=== PATIENT | male | born 1970 | race Caucasian/White ===

== ENCOUNTER → 2020-07-06 15:17 | Outpatient (BNVA) | payer BC, SELFPAY | PROVIDERS: PCP Nurse Practitioner Family; Visit Provider Surgery | DX: K64.4 Residual hemorrhoidal skin tags (principal) | CPT/HCPCS: 46600 ==

== ENCOUNTER 2020-07-31 09:04 | Day surgery (SDC) | payer BC, SELFPAY ==
[2020-07-27 09:20] VITALS: BMI 34.9
--- NOTE | 2020-07-30 09:37 | P.CONAN_ITS ---
Documented by User: Jenn Martinez 07/30/20 09:38 HPI - Anesthesia Eval Consult details Narrative: 50yo M for Excision Anal Mass,EUA [facility] Past Medical History Medical History Displaced fracture of mandible External hemorrhoids Injury of shoulder, left Mass of anus Family History Family History Father Diabetes Mother No problems noted. Surgical History Surgical History H/O right wrist surgery History of hand surgery History of hemorrhoidectomy Social History Social History Use of substances other than those prescribed or required for medical reasons: No Have you been hit, kicked, punched, or otherwise hurt by someone within the past year? If so, by whom?: No Advance Directives: No Advance Directives Information Provided: Yes Recently lost weight without trying: No Meds Allergies Allergy/AdvReac Type Severity Reaction Status Date / Time bee sting Allergy Unknown Uncoded 02/04/20 00:00 Exam Exam Date and Time: July 30, 2020 0937 Height,Weight and Vital Signs: Height 5 ft 11 in Weight 113.852 kg Assessment and Plan Assessment Anesthesia Assessment: Chart Reviewed Documented by User: El Joel 07/31/20 09:44 [facility] Past Medical History Medical History Displaced fracture of mandible External hemorrhoids Injury of shoulder, left Mass of anus Family History Family History Father Diabetes Mother No problems noted. Family history of problems with anesthesia: No Surgical History Surgical History H/O right wrist surgery History of hand surgery History of hemorrhoidectomy History of Problems with Anesthesia: No Social History Social History Use of substances other than those prescribed or required for medical reasons: No Have you been hit, kicked, punched, or otherwise hurt by someone within the past year? If so, by whom?: No Advance Directives: No Advance Directives Information Provided: Yes Recently lost weight without trying: No Meds Allergies Allergy/AdvReac Type Severity Reaction Status Date / Time bee sting Allergy Unknown Uncoded 02/04/20 00:00 Assessment and Plan Assessment Anesthesia Assessment: Anesthesia Plan Discussed Final Anesthetic Review NPO: Yes ASA Class: II Final Preanesthetic Review: No Changes in Pt Med Stat, Meds/Allgs Chart Reviewed, Consent Obtained/Reviewed and Anes Risks/Benef Reviewed Patient Risk: Intermediate Procedure Risk: Low Anesthetic Plan Anesthetic Plan: GA and Agree w/ Assess. and Plan Disposition: Standard PACU
[2020-07-30 11:14] VITALS: BMI 34.9
[2020-07-31] VITALS (18 sets, daily range): BP systolic 94–137; BP diastolic 56–101; PULSE 51–78; RESP 16–18; TEMP 36.2–36.5; O2SAT 93–98
--- NOTE | 2020-07-31 09:28 | MHC.SHP ---
Pre-Procedural Eval Section B Chief Complaint: Diseases of anus and rectum,hemorrhoidal Skin tags Allergies: Allergies Allergy/AdvReac Type Severity Reaction Status Date / Time bee sting Allergy Unknown Uncoded 02/04/20 00:00 Plan I have reviewed the history and physical and performed a pertinent physical examination on my patient. No changes have occurred unless specified.
[2020-07-31] MEDS: Lactated Ringers 1,000 ML 100 ML IVCONT (09:31)
--- NOTE | 2020-07-31 10:48 | PM.OP ---
Brief Operative Note Date of Service: 07/31/20 Pre-op diagnosis: hemorrhoids, anal mass Post-op diagnosis: other (int/exter hemorrhoids) Procedure: EUA, hemorrhoidectomy x 2 Surgeon: Luis Alberto Infante MD Anesthesia: GLMA Estimated blood loss (mL): 50 Pathology: other (hemorrhoids) Condition: stable Disposition: PACU
[2020-07-31] MEDS: fentaNYL citrate/PF 100 MCG/2 ML VIAL 50 MCG IVPUSH ×2 (11:10→11:20)
[2020-07-31] MEDS: oxyCODONE HCl Immed Release 5 MG TABLET PO (11:42)
[2020-07-31] MEDS: Acetaminophen 325 MG TABLET 650 MG PO (11:42)
--- NOTE | 2020-07-31 11:53 | OP_ITS ---
SURGEON: Luis Alberto Infante MD INDICATIONS: The patient is a 50-year-old male, who was referred to the office because of hemorrhoid problems. He also describes a prolapsing mass in the anal canal. Anoscopy showed a mass in the anal canal on the right side, very bulky, that seemed to bleed easily and would prolapse easily as well. There was note of an external hemorrhoid on this area as well externally. In view of this mass getting inflamed and bleeding frequently, he wanted to proceed with excision. He understood the technique of exam under anesthesia, and excision of the anal mass or hemorrhoidectomy. He is aware of the risks, benefits, and alternatives. PREOPERATIVE DIAGNOSIS: Anal mass and hemorrhoids. POSTOPERATIVE DIAGNOSIS: Hemorrhoids, multiple columns, internal and external. PROCEDURE PERFORMED: Exam under anesthesia, hemorrhoidectomy x2 columns. ESTIMATED BLOOD LOSS: COMPLICATIONS: ANESTHESIA: ASSISTANTS: SPECIMENS: DESCRIPTION OF PROCEDURE: He was brought to the operating room ad placed in prone awilda-knife position under general anesthesia via laryngeal mask airway. The buttocks were retracted with wide tape laterally. The perianal area was prepped and draped in usual sterile fashion. A surgical time-out was done. The patient received Cefotan 2 g IV preoperatively. Examination of the anal orifice revealed a large bulky hemorrhoidal column on the right side. I inserted the Jorge-Noland retractor and examined the anal canal circumferentially. Again, large bulky hemorrhoidal column was seen on the right, which was a mix of internal and external. This seemed to prolapse easily as well with its internal component. There was note of external hemorrhoid on the left side, which was moderately sized. There were no other lesions. There was no fissures or any induration. I applied a Garnett grasper at the large hemorrhoidal column on the right side. I pulled this out into the field. I made a qlxuzg-yg-ogkyi stitch at the pedicle past the dentate line using chromic 3-0 stitch and made an incision around this hemorrhoidal column to the perianal skin using blade #15. I excised this hemorrhoidal column above the plane of sphincters along this line of incision using scissors. I closed this incision with running chromic 3-[address] to the perianal skin. I had to place multiple spnyvr-ai-eepoq sutures to achieve hemostasis as there was note of significant oozing in view of the bulky nature of the hemorrhoid. I proceeded to apply a Garnett grasper as well on the left hemorrhoidal column, which was mostly external. I made an incision around this using the blade #15 and I closed this with a running chromic 3-0 stitch. Additional hemostatic idbmgs-fp-eagab sutures were placed as well. I observed for hemostasis. We observed for about 5 minutes. We had to place additional gegpuy-kl-xtpyf sutures on any visible oozing areas on the right side excision site. We observed for good hemostasis for about 3 minutes. I proceeded to then apply Gel-Foam packing in the anal canal. I infiltrated the perianal area with Marcaine 0.5% for postop analgesia, and the procedure was completed. The patient tolerated the procedure well. There were no complications noted. Initial and final counts of sponges and instruments were correct. Estimated blood loss was about 50 mL. The patient tolerated the procedure well. There were no complications noted. The patient was extubated without difficulty and transferred to recovery room with stable vital signs. MD PETRA Vincent/PAMELA / [phone] MTDD
[2020-07-31] MEDS: Ketorolac Tromethamine 15 MG/ML VIAL IVPUSH (12:10)
--- NOTE | 2020-07-31 13:53 | HO.POSTANES ---
Post Anesthesia Evaluation Post Anesthesia Evaluation Vital Signs: Vital Signs Temp Pulse Resp BP Pulse Ox 07/31/20 13:35 97.1 F 64 18 105/57 L 98 07/31/20 13:06 61 16 112/56 L 95 07/31/20 12:35 56 96/60 94 07/31/20 12:05 72 16 100/57 L 97 07/31/20 11:50 68 16 125/87 98 07/31/20 11:35 62 16 123/85 98 07/31/20 11:25 60 16 127/75 93 07/31/20 11:20 64 16 125/84 94 07/31/20 11:16 58 16 137/81 95 07/31/20 11:10 78 16 130/80 94 07/31/20 11:05 97.1 F 64 16 130/75 97 07/31/20 09:21 97.5 F 75 16 122/101 H 97 Anesthesia: General LMA Mental Status: Awake Pain Control: Satisfactory Nausea/Vomiting: None Hydration: Adequate Anesthesia-Related Issues: No Anes. Related Issues
[2020-07-31 14:28] LABS: MANUAL DIFF FLAG NO
[2020-07-31 14:29] LABS: Basophils Percent Auto 0.2 % (0-2); Eosinophils Percent Auto 0.2 % (0-4); Hematocrit 37.1 % (42-52); Hemoglobin 12.2 g/dl (14.0-18.0); Imm Gran Abs Auto 0.04 X10*3/uL (0.00-0.03); Imm Gran Pct Auto 0.4 % (0.0-0.4); Lymphocytes Absolute Auto 1.1 X10*3/uL (1.2-4.9); Lymphocytes Percent Auto 9.7 % (20-40); Mean Corpuscular HGB Conc 32.9 g/dl (31.0-36.0); Mean Corpuscular Hemoglobin 28.2 pg (27.0-33.0); Mean Corpuscular Volume 85.7 fL (80-98); Mean Platelet Volume 9.7 fL (9.4-12.4); Monocytes Absolute Auto 0.6 X10*3/uL (0.1-1.2); Monocytes Percent Auto 5.8 % (2-11); Neutrophils Absolute Auto 9.3 X10*3/uL (2.0-8.3); Neutrophils Percent Auto 83.7 % (45-73); Platelet Count 188 X10*3/uL (160-400); Red Blood Count 4.33 X10*6/uL (4.60-5.80); Red Cell Distribution Width 12.6 % (11.0-16.0); White Blood Count 11.1 X10*3/uL (4.8-10.8)
[2020-07-31] MEDS: Lactated Ringers 500 ML IVCONT (14:55)
[2020-07-31 14:59] LABS: Anion Gap 11 (12-20); Blood Urea Nitrogen 20 mg/dL (9-16); Calcium 8.8 mg/dL (8.4-10.2); Carbon Dioxide 24 mmol/L (22-29); Chloride 107 mmol/L (96-108); Creatinine Clr Calc Pharmacy 81.2; Estimated Glomerular Filt Rate 54; Glucose Random 129 mg/dL (60-115); Potassium 4.2 mmol/l (3.3-5.1); Sodium 138 mmol/L (135-145)
--- NOTE | 2020-07-31 17:01 | PM.EVENT ---
Event Note Date of Service: 07/31/20 Event Note: pt underwent hemorrhoidectomy x 2 columns today he wad an episode of hypotension in PACU, reposnded to fluids and one dose of Neosynephrine not tachycardic he did well thereafter but got dizzy and lightheaded on the way to discharge was kept longer in PACU eventaully became much more comfortable stable the rest of his stay good vital signs, comfortable on discharge no bleeding from hemorrhoidectomy site Hg good
== END 2020-07-31 16:32 | disposition home or self-care (01) ==
PROVIDERS: Anesthesiology; PCP Nurse Practitioner Family; Visit Provider Surgery
PROC: (CPT 46260; principal; 2020-07-31 10:00)
DX: K64.8 Other hemorrhoids (principal); K64.4 Residual hemorrhoidal skin tags; E78.00 Pure hypercholesterolemia, unspecified; E11.9 Type 2 diabetes mellitus without complications; Z79.4 Long term (current) use of insulin; Z79.899 Other long term (current) drug therapy
CPT/HCPCS: 46260; 36415; 80048; 85025; 88304; J0461; J1885; J3010

== ENCOUNTER → 2020-08-13 08:57 | Outpatient (BNVA) | payer BC, SELFPAY | PROVIDERS: PCP Nurse Practitioner Family; Visit Provider Surgery | DX: Z76.89 Persons encountering health services in other specified circumstances (principal) ==

== ENCOUNTER → 2022-11-01 10:03 | Outpatient (BNVA) | payer BC, SELFPAY | PROVIDERS: PCP Nurse Practitioner Family; Visit Provider Physician Assistant | DX: Z13.89 Encounter for screening for other disorder (principal) ==

== ENCOUNTER 2023-01-31 10:39 | Outpatient (REF) | payer BC, SELFPAY ==
[2023-01-31 15:01] LABS: MANUAL DIFF FLAG NO
[2023-01-31 15:19] LABS: Basophils Absolute Auto 0.1 X10*3/uL (0.0-0.2); Basophils Percent Auto 0.9 % (0-2); Eosinophils Absolute Auto 0.3 X10*3/uL (0.0-0.4); Hemoglobin 14.2 g/dl (14.0-18.0); Imm Gran Abs Auto 0.03 X10*3/uL (0.00-0.03); Imm Gran Pct Auto 0.4 % (0.0-0.4); Lymphocytes Absolute Auto 2.2 X10*3/uL (1.2-4.9); Lymphocytes Percent Auto 26.7 % (20-40); Mean Corpuscular HGB Conc 32.3 g/dl (31.0-36.0); Mean Corpuscular Hemoglobin 28.4 pg (27.0-33.0); Mean Platelet Volume 10.4 fL (9.4-12.4); Monocytes Absolute Auto 0.8 X10*3/uL (0.1-1.2); Monocytes Percent Auto 9.4 % (2-11); Neutrophils Absolute Auto 4.8 x10*3/uL (2.0-8.3); Neutrophils Percent Auto 58.6 % (45-73); Platelet Count 262 X10*3/uL (160-400); Red Cell Distribution Width 12.8 % (11.0-16.0); White Blood Count 8.2 X10*3/uL (4.8-10.8)
[2023-01-31 15:38] LABS: Appearance Urine Clear; Color Urine Yellow; Glucose Urine UA Negative (Negative); Leukocyte Esterase Urine Negative (Negative); Nitrite Urine Negative (Negative); PH 5.5 (5.0-9.0); Specific Gravity - Urine 1.025 (1.005-1.025); Urine Blood Negative (Negative); Urine Ketones Negative (Negative); Urine Protein Negative (Neg-Trace)
[2023-01-31 15:55] LABS: Alanine Aminotransferase 25 U/L (0-40); Albumin Level 4.4 g/dL (3.5-5.0); Alkaline Phosphatase 86 U/L (39-117); Anion Gap 11 (12-20); Aspartate Amino Transferase 16 U/L (5-37); Bilirubin Total 0.4 mg/dL (0.0-1.0); Blood Urea Nitrogen 23 mg/dL (9-16); Calcium 10.1 mg/dL (8.4-10.2); Carbon Dioxide 27 mmol/L (22-29); Chloride 105 mmol/L (96-108); Cholesterol 150 mg/dL; Estimated Glomerular Filt Rate > 60; Glucose Fasting 117 mg/dL (60-99); HDL Cholesterol 30 mg/dL; LDL Cholesterol Calculated 95 mg/dl; Potassium 4.3 mmol/L (3.3-5.1); Sodium 139 mmol/L (135-145); Triglycerides 127 mg/dL
[2023-01-31 15:56] LABS: TSH reflex Free T4 1.22 uIU/mL (0.32-4.0)
[2023-01-31 15:59] LABS: Prostate Specific Antigen Scr 1.47 ng/mL (<0.05-4.0)
== END 2023-01-31 10:40 | disposition home or self-care (01) ==
LOC: HO.HMGCLDS 10:39
PROVIDERS: PCP Nurse Practitioner Family; Visit Provider Nurse Practitioner Family
DX: Z00.00 Encounter for general adult medical examination without abnormal findings (principal); Z12.5 Encounter for screening for malignant neoplasm of prostate; E66.9 Obesity, unspecified; E78.5 Hyperlipidemia, unspecified
CPT/HCPCS: 36415; 80053; 80061; 81003; 84153; 84443; 85025

== ENCOUNTER 2023-05-16 12:42 | Day surgery (SDC) | payer BC, SELFPAY ==
[2023-05-12 11:49] VITALS: BMI 35.4
--- NOTE | 2023-05-15 11:42 | P.CONAN_ITS ---
Documented by User: Jenn Martinez NP 05/15/23 11:43 HPI - Anesthesia Eval Consult details Narrative: 53yo M for Colonoscopy PMFSH Active Problems Active Problems: All Active Problems (Updated 01/31/23 @ 10:34 by Wally Lakhani MD) Upper respiratory tract infection (Acute) Encounter for screening colonoscopy (Acute) Physical exam (Acute) Screening PSA (prostate specific antigen) (Acute) Onychomycosis (Acute) Screening for colon cancer (Acute) External hemorrhoids (Acute) Mass of anus (Acute) Hemorrhoid thrombosis (Acute) Past Medical History Medical History External hemorrhoids Mass of anus Displaced fracture of mandible Injury of shoulder, left Family History Family History Father Diabetes Mother No problems noted. Daughter Mental health disorder Family history of problems with anesthesia: No Surgical History Surgical History H/O fasciotomy History of hemorrhoidectomy History of hand surgery H/O right wrist surgery History of Problems with Anesthesia: No Social History Social History Housing: House Patient Tobacco Use Status: Never used Tobacco e-Cigarette/Vaping Use: Never Used Second Hand Smoke Exposure: No Use of substances other than those prescribed or required for medical reasons: No Are you DNR?: No Advance Directives: No Advance Directives Information Provided: Yes service: Yes Current occupational status: employed Current occupation: [employer] Current occupational exposures/hazards: Yes Cognitive needs: No Hearing needs: No Vision needs: No Meds Allergies Allergy/AdvReac Type Severity Reaction Status Date / Time bee venom protein (honey bee) Allergy Unknown unknown Verified 05/16/23 13:07 Exam Exam Date and Time: May 15, 2023 1142 Height,Weight and Vital Signs: Height 5 ft 11 in Weight 115.212 kg Pertinent Lab Results Pertinent Lab Results: Laboratory Tests 01/31/23 10:52 WBC 8.2 Hgb 14.2 Hct 44.0 Plt Count 262 Sodium 139 Potassium 4.3 Chloride 105 Carbon Dioxide 27 BUN 23 H Creatinine 1.06 Assessment and Plan Assessment Anesthesia Assessment: Chart Reviewed Final Anesthetic Review Family History of Problems with Anesthesia: No History of Problems with Anesthesia: No Documented by User: Lauren Cash MD 05/16/23 13:23 [facility] Past Medical History Medical History External hemorrhoids Mass of anus Displaced fracture of mandible Injury of shoulder, left Family History Family History Father Diabetes Mother No problems noted. Daughter Mental health disorder Surgical History Surgical History H/O fasciotomy History of hemorrhoidectomy History of hand surgery H/O right wrist surgery Social History Social History Housing: House Patient Tobacco Use Status: Never used Tobacco e-Cigarette/Vaping Use: Never Used Second Hand Smoke Exposure: No Use of substances other than those prescribed or required for medical reasons: No Are you DNR?: No Advance Directives: No Advance Directives Information Provided: Yes service: Yes Current occupational status: employed Current occupation: [employer] Current occupational exposures/hazards: Yes Cognitive needs: No Hearing needs: No Vision needs: No Meds Allergies Allergy/AdvReac Type Severity Reaction Status Date / Time bee venom protein (honey bee) Allergy Unknown unknown Verified 05/16/23 13:07 Exam Airway Mallampati Class: III TM Dist: >3cm Neck ROM: Full Assessment and Plan Assessment Anesthesia Assessment: Anesthesia Plan Discussed Final Anesthetic Review NPO: Yes ASA Class: III Final Preanesthetic Review: No Changes in Pt Med Stat, Meds/Allgs Chart Reviewed, Consent Obtained/Reviewed and Anes Risks/Benef Reviewed Patient Risk: Intermediate Procedure Risk: Low Anesthetic Plan Anesthetic Plan: MAC: Disposition: Standard PACU
[2023-05-16 13:25] VITALS: BP 141/87; PULSE 80; RESP 16; TEMP 36.9; O2SAT 97
[2023-05-16] MEDS: Lactated Ringers 1,000 ML 100 ML IVCONT (13:35)
--- NOTE | 2023-05-16 13:55 | P.HPSUR_ITS ---
Pre-Procedural Eval Section A Date of Service: 05/16/23 Section B Chief Complaint: Encounter for screening for malignant neoplasm of Relevant Family History (Specify if Yes): No Relevant Social History: None Present Medications: see Short Stay Collaborative assessment Medical History: Significant History (hemorrhoids) History of Previous Operations: Relevant previous surgery/procedure and date(s) (H/O right wrist surgery History of hand surgery History of hemorrhoidectomy) Allergies: Allergies Allergy/AdvReac Type Severity Reaction Status Date / Time bee venom protein (honey bee) Allergy Unknown unknown Verified 05/16/23 13:07 Review of Systems Sugical H&P ROS: Negative: Constitution, Cardiovascular, Respiratory, Neurological, Psychiatric, Hem-Onc, Allergic/Immunologic, Gastrointestinal, Genitourinary, Musculoskeletal, Integumentary, Endocrine and E yes/Ears/Nose/Throat Exam Surgical H&P Exam: Normal: HEENT, Normal: Heart, Normal: Lungs, Normal: Extremities, Normal: Abdomen, Normal: Skin and Normal: Neurological Plan Diagnosis/Plan: Unchanged I have reviewed the history and physical and performed a pertinent physical examination on my patient. No changes have occurred unless specified. Time Spent With Patient Time: Total time managing care of this patient today ____ minutes.
--- NOTE | 2023-05-16 14:07 | W.PM.OPN ---
Operative Note Operative Note Date of Service: 05/16/23 Narrative: Operative Information Procedure Description: Colonoscopy Indication: screening Anesthesia: MAC COLONOSCOPY Instrument: Olympus variable stiffness ADULT scope 190L Colonoscopy Monitoring: Vital signs and clinical assessment, continuous EKG monitoring, Pulse oximetry, Carbon Dioxide monitoring and blood pressure monitoring were done throughout the procedure. Colon withdrawal time was 8 minutes. Procedure: The patient was placed in the left lateral decubitis position and pre-procedure medications were administered. After a digital rectal examination of the ano-rectum, the video colonoscope was inserted into the rectum and advanced through the colon to the cecum/TI. The colonoscope was slowly withdrawn in a retrograde panoramic fashion and the colon mucosa was carefully examined including a retroflexed view of the rectum. Findings and interventions are described below. Procedure Difficulty: easy Findings: Terminal Ileum-normal Cecum:normal Ascending Colon: normal Transverse Colon -normal Descending Colon:normal Sigmoid Colon: normal Rectum: Retroflexion with small internal hemorrhoids, grade I Anorectum - normal Colon preparation: [place] Bowel Preparation Scale Right colon; 3 Transverse colon: 3 Left colon; 3 (0 = Unprepared colon segment with mucosa not seen due to solid stool that cannot be cleared. 1 = Portion of mucosa of the colon segment seen, but other areas of the colon segment not well seen due to staining, residual stool and/or opaque liquid. 2 = Minor amount of residual staining, small fragments of stool and/or opaque liquid, but mucosa of colon segment seen well. 3 = Entire mucosa of colon segment seen well with no residual staining, small fragments of stool or opaque liquid) Impression and Post Procedure Diagnosis: internal hemorrhoids Plan: High fiber diet leaflet Avoid straining at stool, epsom salts and sitz bath, anusol supps or cream Repeat Colonoscopy in 10 years or earlier if clinically indicated Above findings were reviewed with the patient and relevant handouts were provided if indicated.
[2023-05-16 14:34] VITALS: BP 117/78; PULSE 73; RESP 16; TEMP 36.2; O2SAT 97
[2023-05-16 14:49] VITALS: BP 128/84; PULSE 71; RESP 16; O2SAT 97
[2023-05-16 15:04] VITALS: BP 137/96; PULSE 72; RESP 16; TEMP 36.3; O2SAT 95
== END 2023-05-16 15:31 | disposition home or self-care (01) ==
PROVIDERS: PCP Nurse Practitioner Family; Visit Provider Internal Medicine Gastroenterology
PROC: 0DJD8ZZ Inspection of Lower Intestinal Tract, Via Natural or Artificial Opening Endoscopic (ICD-10-PCS; CPT 45378; principal; 2023-05-16 14:30)
DX: Z12.11 Encounter for screening for malignant neoplasm of colon (principal); K64.0 First degree hemorrhoids; Z98.890 Other specified postprocedural states
CPT/HCPCS: 45378

== ENCOUNTER → 2023-05-16 12:42 | Outpatient (BNV) | payer BC, SELFPAY | PROVIDERS: PCP Nurse Practitioner Family; Visit Provider Internal Medicine Gastroenterology | DX: Z12.11 Encounter for screening for malignant neoplasm of colon (principal); K64.0 First degree hemorrhoids | CPT/HCPCS: 45378 ==

== ENCOUNTER 2023-06-01 09:57 | Outpatient (AMB) | payer BC, SELFPAY ==
--- NOTE | 2023-06-01 10:05 | MHC.PC.OV ---
Vital Signs 06/01/23 10:07 Height 5 ft 11 in Weight 230 lb BMI 32.1 BP 120/80 Blood Pressure Location Rt brachial Position Sitting Pulse 78 Pulse Source Pulse Oximeter Pulse Oximetry (%) 97 Oxygen Delivery Method Room Air Intake Visit Reasons: 6M. F/U-Onychomycosis Allergies bee venom protein (honey bee) Allergy (Unknown, Verified 06/01/23 10:07) unknown Tobacco use date assessed: 09/06/22 HPI 6M. F/U-Onychomycosis HPI Details Pt's recent fasting blood sugar was elevated. Will repeat labs. Educated pt on proper diet. Denies polyuria, polydipsia, and neuropathy. Pt reports ED. He is taking sildenafil prn. Will check testosterone. Pt reports onychomycosis to his bilat toenails. Will refer to podiatry. [facility] Medical History (Updated 06/01/23 @ 10:45 by Pedro Cantu, [facility]) External hemorrhoids Mass of anus Displaced fracture of mandible Injury of shoulder, left Surgical History (Updated 05/19/23 @ 10:10 by Rosalba Trinh) Hx of colonoscopy H/O fasciotomy History of hemorrhoidectomy History of hand surgery H/O right wrist surgery Family History Father Diabetes Mother No problems noted. Daughter Mental health disorder Social History Housing: House Patient Tobacco Use Status: Never used Tobacco e-Cigarette/Vaping Use: Never Used Second Hand Smoke Exposure: No service: Yes Current occupational status: employed Current occupation: [employer] Current occupational exposures/hazards: Yes Cognitive needs: No Hearing needs: No Vision needs: No Questionnaire Thrive Questionnaire Date Thrive assessed: 09/06/22 GEE-7 AMB Questionnaire GEE-7 Date GEE - 7 assessed: 09/06/22 Source: Developed by Drs. Hector Kam, Paige Ferrari, Jean Jaeger and colleagues, with an educational janay from [employer] Review of Systems Const Reports as per HPI Physical exam (Primary Care) Vital Signs: Last Vital Signs Pulse 78 06/01/23 10:07 BP 120/80 06/01/23 10:07 Pulse Ox 97 06/01/23 10:07 Oxygen Delivery Method Room Air 06/01/23 10:07 BMI result Body Mass Index 32.1 Tobacco/Smoking Status: Tobacco use Status Tobacco use date assessed 09/06/22 06/01/23 10:06 Patient Tobacco Use Status Never used Tobacco 06/01/23 10:06 e-Cigarette/Vaping Use Never Used 06/01/23 10:06 Thrive Assessment: Date of Thrive Assessment Date Thrive assessed 09/06/22 06/01/23 10:06 Const General: cooperative Nutritional Appearance: obese Orientation/consciousness: patient oriented x3 Resp Effort & Inspection: normal respiratory effort Auscultation: clear to auscultation bilaterally Cardio Rate: regular rate Rhythm: regular rhythm Heart sounds: S1 normal heart sound present and S2 normal heart sound present Skin Other: several macular and papular flesh colored lesions to back, large skin tag just inferior to right axillary region Neuro General: patient oriented x3 Extrem Other: onychomycosis noted to bilat feet Psych Appearance: grossly normal Mental Status: mental status grossly normal Speech and movement: Normal speech and movement present Affect: normal affect Attitude: cooperative Thought process: Normal thought process present Thought content: Normal thought content present Insight: Good insight present (Psych) Judgement: Good judgement present (Psych) Assessment and Plan Assessment & Plan (1) Elevated fasting blood sugar: Code(s): R73.01 - Impaired fasting glucose Plan: Labs ordered (2) Erectile dysfunction: Code(s): N52.9 - Male erectile dysfunction, unspecified Plan: Testosterone noted (3) Onychomycosis: Code(s): B35.1 - Tinea unguium Plan: Referred to podiatry (4) Skin lesions: Code(s): L98.9 - Disorder of the skin and subcutaneous tissue, unspecified Plan The patient agreed to the use of a medical director/head team physician for this encounter. Scribed for ZEENAT Alonzo by Toya Wolff medical director/head team physician, on 06/01/2023 at 10:30 EST Orders: Orders Complete Blood Count Auto Diff Today R73.01 - Impaired fasting glucose Comprehensive Met. Panel Today R73.01 - Impaired fasting glucose Testosterone, Free/Total Today N52.9 - Male erectile dysfunction, unspecified Referrals Podiatry Referral B35.1 - Tinea unguium Dermatology Referral L98.9 - Disorder of the skin and subcutaneous tissue, unspecified Coding Level of Care Code Est Pt Level 3 (49269) Diagnoses Elevated fasting blood sugar R73.01 Erectile dysfunction N52.9 Onychomycosis B35.1 Skin lesions L98.9
[2023-06-01 10:07] VITALS: BP 120/80; PULSE 78; O2SAT 97; BMI 32.1
== END 2023-06-01 10:59 | disposition home or self-care (01) ==
PROVIDERS: PCP Nurse Practitioner Family; Visit Provider Nurse Practitioner Family
DX: R73.01 Impaired fasting glucose (principal); N52.9 Male erectile dysfunction, unspecified; B35.1 Tinea unguium; L98.9 Disorder of the skin and subcutaneous tissue, unspecified
CPT/HCPCS: 99213

== ENCOUNTER 2023-06-01 10:56 | Outpatient (REF) | payer BC, SELFPAY ==
[2023-06-01 13:15] LABS: MANUAL DIFF FLAG NO
[2023-06-01 13:33] LABS: Basophils Percent Auto 0.6 % (0-2); Eosinophils Absolute Auto 0.1 X10*3/uL (0.0-0.4); Eosinophils Percent Auto 2.6 % (0-4); Hematocrit 42.7 % (42.0-52.0); Hemoglobin 14.3 g/dl (14.0-18.0); Imm Gran Abs Auto 0.01 X10*3/uL (0.00-0.03); Imm Gran Pct Auto 0.2 % (0.0-0.4); Lymphocytes Percent Auto 37.8 % (20-40); Mean Corpuscular HGB Conc 33.5 g/dl (31.0-36.0); Mean Corpuscular Hemoglobin 28.9 pg (27.0-33.0); Mean Corpuscular Volume 86.3 fL (80.0-98.0); Mean Platelet Volume 10.4 fL (9.4-12.4); Monocytes Absolute Auto 0.6 X10*3/uL (0.1-1.2); Monocytes Percent Auto 10.5 % (2-11); Neutrophils Absolute Auto 2.6 x10*3/uL (2.0-8.3); Neutrophils Percent Auto 48.3 % (45-73); Platelet Count 218 X10*3/uL (160-400); Red Blood Count 4.95 X10*6/uL (4.60-5.80); Red Cell Distribution Width 12.6 % (11.0-16.0); White Blood Count 5.3 X10*3/uL (4.8-10.8)
[2023-06-01 14:54] LABS: Alanine Aminotransferase 44 U/L (0-40); Albumin Level 4.5 g/dL (3.5-5.0); Alkaline Phosphatase 60 U/L (39-117); Anion Gap 14 (12-20); Aspartate Amino Transferase 26 U/L (5-37); Bilirubin Total 0.6 mg/dL (0.0-1.0); Blood Urea Nitrogen 20 mg/dL (9-16); Calcium 9.9 mg/dL (8.4-10.2); Carbon Dioxide 23 mmol/L (22-29); Chloride 105 mmol/L (96-108); Estimated Glomerular Filt Rate > 60; Glucose Random 82 mg/dL (60-115); Potassium 3.7 mmol/L (3.3-5.1); Sodium 138 mmol/L (135-145); Total Protein 7.5 g/dL (6.5-8.0)
[2023-06-06 15:44] LABS: Testosterone, Total 383 ng/dL (250-1100)
== END 2023-06-01 10:57 | disposition home or self-care (01) ==
LOC: HO.HMGCLDS 10:56
PROVIDERS: PCP Nurse Practitioner Family; Visit Provider Nurse Practitioner Family
DX: R73.01 Impaired fasting glucose (principal); N52.9 Male erectile dysfunction, unspecified
CPT/HCPCS: 36415; 80053; 84402; 84403; 85025

== ENCOUNTER 2023-06-20 08:42 | Outpatient (REF) | payer BC, SELFPAY ==
--- NOTE | ~2023-06-20 | US_ITS ---
EXAMINATION: US ABDOMEN COMPLETE CLINICAL INFORMATION: Abnormal levels of other serum enzymes. COMPARISON: None available. TECHNIQUE: Real-time imaging of the abdominal viscera. FINDINGS: PANCREAS: Visualized portions of the pancreas are unremarkable however portions are obscured by bowel gas limiting evaluation. ABDOMINAL AORTA: The proximal, mid, and distal segments are normal in caliber. INFERIOR VENA CAVA: Visualized portions are normal. LIVER: The liver is normal in size. The liver contour is normal. Echogenic liver with regions of focal fatty sparing compatible with hepatic steatosis. No focal hepatic lesion. There is no intrahepatic biliary duct dilatation seen. GALLBLADDER: Normal. The gallbladder is physiologically distended without evidence of stones, sludge, polyps, wall thickening or pericholecystic fluid. COMMON BILE DUCT: Normal in caliber measuring 0.2 cm in diameter. RIGHT KIDNEY: Normal. No hydronephrosis. No renal calculi or focal parenchymal lesions. The kidney measures 11.2 cm in maximum dimension. LEFT KIDNEY: Normal. No hydronephrosis. No renal calculi or focal parenchymal lesions. The kidney measures 10.6 cm in maximum dimension. SPLEEN: Normal. The spleen measures 11.7 cm in maximum dimension. FREE FLUID: None. US/US abdomen complete IMPRESSION: Moderate hepatic steatosis.
[2023-06-20 12:16] LABS: HBS Num1 233.67 mIU/mL (0-7.99); HBc Num1 0.08 S/CO (0.00-0.79); HBsAGNum1 0.29 S/CO (0.00-0.99); Hepatitis A Antibody IgM 0.28 Index (0-0.79); Hepatitis B Core Antibody Nonreactive (Nonreactive); Hepatitis B Surface Antigen Negative (Negative); ~HepC Num1 0.13 S/CO (0.00-0.79); ~Hepatitis A Antibody IgM Nonreactive (Nonreactive); ~Hepatitis B Surface Antibody REACTIVE (Nonreactive); ~Hepatitis C Antibody Nonreactive (Nonreactive)
== END 2023-06-20 08:43 | disposition home or self-care (01) ==
LOC: HO.HMGCX 08:42
PROVIDERS: PCP Nurse Practitioner Family; Visit Provider Nurse Practitioner Family
DX: R74.8 Abnormal levels of other serum enzymes (principal)
CPT/HCPCS: 36415; 76700; 86704; 86706; 86709; 86803; 87340

== ENCOUNTER 2023-07-18 10:35 | Outpatient (REF) | payer BC, SELFPAY ==
[2023-07-18 14:04] LABS: HIV AB/AG Nonreactive (Nonreactive); HIV Num 1 0.09 S/CO (0.00-0.99); Syphilis Screen Nonreactive (Nonreactive)
[2023-07-19 11:41] LABS: CT PCR NOT DETECTED (Not Detect.); NG PCR NOT DETECTED (Not Detect.)
== END 2023-07-18 10:36 | disposition home or self-care (01) ==
LOC: HO.HMGCLDS 10:35
PROVIDERS: PCP Nurse Practitioner Family; Visit Provider Nurse Practitioner Family
DX: Z20.2 Contact with and (suspected) exposure to infections with a predominantly sexual mode of transmission (principal)
CPT/HCPCS: 0353U; 86780; 87389

== ENCOUNTER 2024-08-09 10:02 | Outpatient (REF) | payer BC, SELFPAY ==
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
--- OUTSIDE RECORDS SUMMARY | 2024-08-09 10:09 | XMS_ITS ---
Author Organization [facility] Address [address] [place] [address] Care Team Providers Care Regional Sales Coordinator Name Role Phone Pedro Birmingham Primary Care Provider Unav ailable Adrienne Melendez Unavailable [phone] REASON FOR VISIT no show Encounters Encounter Location Date Provider Diagnosis [facility] [address] [place] [address] 07/05/2024 Adrienne Melendez Plan Of Treatment No Information Progress Notes * Asad CURRIEinDOB:1970 (54 yo M)Acc No.[id number]:07/05/2024 Patient:?Mert CURRIE :1970???Age:54 Y???Sex:Male Address:[address], [place], [address] * true * Date:? Generated for Koreyi rita/Frankie/eTransmitting on:?08/09/2024 10:08 AM EST
--- OUTSIDE RECORDS SUMMARY | 2024-08-09 10:09 | XMS_ITS | Continuity of Care Document ---
Author Name [facility] Organization [facility] Care Team Providers Care Stamp Maker Name Role Phone [facility] Unavailable Unavailable Social History Combined list of available smoking, tobacco, and other social history from Department of Defense and Veterans Affairs facilities. Social History Type Response Date Comment Sourc e This section is an empty social history section. [facility]
--- OUTSIDE RECORDS SUMMARY | 2024-08-09 10:09 | XMS_ITS | Patient Health Record ---
[facility] Kirt mateusz Gabe Address [address] [place] [address] Care Team Providers Care Cable Maintainer Name Role Phone Pedro Birmingham Primary Care Provider Unav ailable Adrienne Melendez Unavailable [phone] Allergies Allergen (clinical drug ingredient) Drug/Non Drug Allergy documented on EMR Reaction Allergy Type Onset Date Status Bee Sting Unknown Allergy Active Reason For Referral Diagnosis 1 Pain in unspecified foot (M79.673) Referring Provider First Name Pedro Referring Provider Last Name Pepe [facility] Referred Provider Adrienne Melendez Referred Address [address] ,[place], [place],[address], Referred Provider Specialty Podiatry Referral Priority Routine Medications Medication SIG (Take, Route, Frequency, Duration) Notes Start Date End Date Status LamISIL 250mg 1 tablet orally Once daily for 30 days Active Ciclopirox Olamine 0.77 % 1 application Externally Twice a day to feet including between the toes for 30 days Active Ciclopirox 0.77 % 1 application Zanjero ally Twice a day for 365 days [...] 08/05/2024 Encounters Encounter Location Date Provider Diagnosis [address] [address] 04/24/2024 Adrienne Perica Fungal infection of nail B35.1 ; Pain in right toe(s) M79.674 ; Pain in left toe(s) M79.675 and Tinea pedis of both feet B35.[address] [address] 08/05/2024 Adrienne Perica Pain in right toe(s) M79.674 ; Fungal infection of nail B35.1 ; Pain in left toe(s) M79.675 and Tinea pedis of both feet B35.[address] [address] 04/24/2024 Adrienne Perica Fungal infection of nail B35.[address] [address] 07/05/2024 Adrienne Virka Assessments Encounter Date Diagnosis (ICD Code) Assessment Notes Treatment Notes Treatment Clinical Notes Section Notes 04/24/2024 Pain in right toe(s) (ICD-10 - M79.674) 04/24/2024 Fungal infection of nail (ICD-10 - B35.1) Rx management (4) 04/24/2024 Fungal infection of nail (ICD-10 - B35.1) 08/05/2024 Pain in right toe(s) (ICD-10 - M79.674) 08/05/2024 Fungal infection of nail (ICD-10 - B35.1) Rx management (4) 04/24/2024 Pain in left toe(s) (ICD-10 - M79.675) 08/05/2024 Pain in left toe(s) (ICD-10 - M79.675) 04/24/2024 Tinea pedis of both feet (ICD-10 - B35.3) 08/05/2024 Tinea pedis of both feet (ICD-10 - B35.3) Plan Of Treatment Pending Test Test Name Order Date *Liver Function Test (LFT) 04/24/2024 *Liver Function Test (LFT) 08/05/2024 *Liver Function Test (LFT) 04/24/2024 Insurance Providers Payer Name Payer Address Payer Phone Subscriber Number Group Number Insured Name Patient Relationship to Insured Coverage Start Date Coverage End Date [facility] [address] [place] [address] [id number] M[address] Currie Self - patient is the insured Medical (General) History Medical History History ICD Code Broken bones covid-19 Chicken pox Surgical History Surgery Date(Month/Year) broken bones, surgery to repair 1998
--- OUTSIDE RECORDS SUMMARY | 2024-08-09 10:09 | XMS_ITS ---
Author Organization [facility] Address [address] [place] [address] Care Team Providers Care Brazing Machine Setter Name Role Phone Pedro Birmingham Primary Care Provider Unav ailable Adrienne Melendez Unavailable [phone] Encounters Encounter Location Date Provider Diagnosis [facility] [address] [place] [address] 07/05/2024 Adrienne Melendez Plan Of Treatment No Information Progress Notes * Asad CURRIEinDOB:1970 (54 yo M)Acc No.[id number]:07/05/2024 Progress Note Patient:Mert DAVIS Provider:?Adrienne Melendez DPM :1970???Age:54 Y???Sex:Male Jonathan e:07/05/2024 Address:[address], [facility] [place] Pcp:HANNAH Alonzo Subjective: * Chief Complaints: * ??? * Medical History:? Objective: * Vitals:? Assessment: Plan: * Treatment: * Images: * The named appointment provid er may or may not be the originator of this progress note, and it is not deemed complete until electronically signed by the appointment provider. Sign off status: Pending * Provider:?Adrienne Melendez DPM Date:? Generated for Millie salinas/Frankie/eTransmitting on:?08/09/2024 10:08 AM EST
[2024-08-09 13:31] LABS: Alanine Aminotransferase 47 U/L (0-40); Albumin Level 4.6 g/dL (3.5-5.0); Alkaline Phosphatase 64 U/L (39-117); Aspartate Amino Transferase 27 U/L (5-37); Bilirubin Direct 0.2 mg/dL (0.0-0.5); Bilirubin Total 0.5 mg/dL (0.0-1.0); Total Protein 7.7 g/dL (6.5-8.0)
== END 2024-08-09 10:03 | disposition home or self-care (01) ==
LOC: HO.HMGCLDS 10:02
PROVIDERS: PCP Nurse Practitioner Family; Visit Provider Podiatrist
DX: B35.1 Tinea unguium (principal)
CPT/HCPCS: 36415; 80076

== ENCOUNTER 2025-02-27 16:18 | Outpatient (AMB) | payer BC, SELFPAY ==
--- OUTSIDE RECORDS SUMMARY | 2024-07-05 05:30 | XMS_ITS ---
Author Organization [facility] Address [address] [place] [address] Care Team Providers Care Director Title Name Role Phone Pedro Birmingham Primary Care Provider Unav ailable Adrienne Melendez Unavailable [phone] Encounters Encounter Location Date Provider Diagnosis [facility] [address] [place] [address] 07/05/2024 Adrienne Melendez Plan Of Treatment No Information Progress Notes * Asad CURRIEinDOB:1970 (55 yo M)Acc No.[id number]:07/05/2024 Progress Note Patient: Mert BLANCO Provider: Ghassan Melendez DPM :1970 A ge:54 Y S ex:Male Date:07/05/2024 Address:[address], [place], [place] Pcp:HANNAH Alonzo Subjective: * Chief Complaints: * [...] 09/04/2023 Generated for Printi ng/Faxing/eTransmitting on: 0 02/27/2025 04:25 PM EDT
--- NOTE | 2025-02-27 16:23 | MHC.OFFWIV ---
Intake Vital Signs 02/27/25 16:24 Height 5 ft 11 in Weight 248 lb BMI 34.6 BP 124/80 Blood Pressure Location Lt brachial Position Sitting Pulse 116 H Pulse Source Pulse Oximeter Temp 98.1 F Temp Source Oral Pulse Oximetry (%) 96 Oxygen Delivery Method Room Air Intake Visit Reasons: EP rash all over arm & the rest of the body Intake Note: presents with red, raised rash on body all over Patient Tobacco Use Status: Never used Tobacco Allergies bee venom protein (honey bee) Allergy (Unknown, Verified 02/27/25 16:25) unknown Medication List - Last Reconciled 02/27/25 by Namrata Gomes PA-C No Known Home Meds Do you need a note to return to daycare/school/sports/work: No HPI HPI Comments History of Present Illness Details Patient is a 55-year-old male complaining of a rash for the past few weeks. He states that it is a circular rash that is on his arms, in his groin and he thinks it is on his back. He has tried using Selsun blue but it did not seem to help. He tells me it is not itchy. He denies any fevers. 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 He tells me it is a tricky situation and has caused him undue stress where his mind is racing constantly and he does not know how to manage it, he does not take any daily medications or as needed medications to manage his stress and he does not see a therapist. Also his PCP's on vacation until March 10 and he can not get an appointment with him until July [facility] Medical History (Updated 02/27/25 @ 16:43 by Namrata Gomes PA-C) Fatty liver External hemorrhoids Mass of anus Displaced fracture of mandible Injury of shoulder, left Surgical History (Updated 05/19/23 @ 10:10 by Rosalba Trinh) Hx of colonoscopy H/O fasciotomy History of hemorrhoidectomy History of hand surgery H/O right wrist surgery Family History Father Diabetes Mother No problems noted. Daughter Mental health disorder Social History Housing: House Patient Tobacco Use Status: Never used Tobacco e-Cigarette/Vaping Use: Never Used Second Hand Smoke Exposure: No service: Yes Current occupational status: employed Current occupation: [employer] Current occupational exposures/hazards: Yes Cognitive needs: No Hearing needs: No Vision needs: No Review of Systems Const All systems reviewed & are unremarkable except as noted in HPI and below Physical Exam Vital Signs: Last Vital Signs Temp 98.1 F 02/27/25 16:24 Pulse 116 H 02/27/25 16:24 BP 124/80 02/27/25 16:24 Pulse Ox 96 02/27/25 16:24 Oxygen Delivery Method Room Air 02/27/25 16:24 BMI result Body Mass Index 34.6 Const General: cooperative, healthy appearing, comfortable and no acute distress Orientation/consciousness: patient oriented x3 Limitations: no limitations HEENT Head: Yes normal to inspection Eyes General: appearance normal, both eyes and all related structures Resp Effort & Inspection: normal respiratory effort and able to speak in complete sentences Skin Other: Multiple 0.75 cm- 1.0 cm circular lesions with erythema, scabbed edges and central clearing on the left forearm and upper arm, right forearm and upper arm, similar rash on the bilateral groin area. Neuro General: patient oriented x3 Assessment & Plan Assessment & Plan (1) Tinea cruris: Code(s): B35.6 - Tinea cruris Plan: Sent clotrimazole to pharmacy, advised to use it twice a day for at least 2 weeks. Did state that he may have to purchase more [id number]. (2) Tinea corporis: Code(s): B35.4 - Tinea corporis Plan: As above (3) Anxiety in acute stress reaction: Code(s): F41.1 - Generalized anxiety disorder; F43.0 - Acute stress reaction Plan: Our community health worker has just left the day so I asked him to return to the office early on Monday to meet with her to go over things he can do in an acute stress situation. Also she can give him resources and possibly set him up with a therapist and other local resources. I did recommend Benadryl he can use as needed. I also recommended perhaps taking a leave of absence from work and gave him information on FMLA. Medications: New clotrimazole 1% 1 appl topical bid 45 grams 1RF 3 weeks Coding Level of Care Code Est Pt Level 3 (10662) Diagnoses Tinea cruris B35.6 Tinea corporis B35.4 Anxiety in acute stress reaction F41.1; F43.0
[2025-02-27 16:24] VITALS: BP 124/80; PULSE 116; TEMP 36.7; O2SAT 96; BMI 34.6
== END 2025-02-27 16:47 | disposition home or self-care (01) ==
PROVIDERS: PCP Nurse Practitioner Family; Visit Provider Physician Assistant
DX: B35.6 Tinea cruris (principal); B35.4 Tinea corporis; F41.1 Generalized anxiety disorder; F43.0 Acute stress reaction

== ENCOUNTER 2025-03-12 06:47 | Outpatient (AMB) | payer BC, SELFPAY ==
--- NOTE | 2025-03-12 07:31 | A.OFFPC_ITS ---
Intake Visit Reasons: anxiety Allergies bee venom protein (honey bee) Allergy (Unknown, Verified 02/27/25 16:25) unknown Tobacco use date assessed: 09/06/22 HPI anxiety HPI Details History of Present Illness The patient is a 55-year-old male presenting with severe GERD symptoms. He reports experiencing significant symptoms, particularly at night, including a ba d taste in his mouth. The symptoms have been persistent, and he has been advised to avoid eating at least three hours before bedtime and to elevate the head of his bed. The patient is also experiencing significant stress and anxiety related to his work situation. 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 He has legal representation to help address this. The stress from this situation has led to symptoms of anxiety and depression, although he denies any suicidal or homicidal ideation. Review of Systems - Gastrointestinal: Reports severe GERD symptoms, particularly at night, with a bad taste in the mouth. - Psychiatric: Reports anxiety and depre ssion related to work stress. Denies suicidal or homicidal ideation. Plan The patient will be started on pantoprazole to manage his GERD symptoms. He has been advised to avoid eating at least three hours before bedtime and to elevate the head of his bed to reduce symptoms. Given the significant stress and anxiety related to his work situation, it is recommended that he consider working from home until his court date in July. The patient is encouraged to reach out if he experiences any worsening of symptoms or has further questions. Discussion Notes I discussed with the patient the initiation of pantoprazole for his GERD symptoms and advised lifestyle modifications such as avoiding late meals and elevating the head of the bed. 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 Patient Instructions - Start taking pantoprazole as prescribe d. - Avoid eating at least three hours befo re going to bed. - Elevate the head of your bed to help r educe GERD symptoms. - Consider working from home until your court date in July to reduce stress. - Contact me if your symptoms worsen or if you have any questions. [facility] Medical History (Updated 03/12/25 @ 08:07 by Pedro Cantu, [facility]) Fatty liver External hemorrhoids Mass of anus Displaced fracture of mandible Injury of shoulder, left Surgical History (Updated 05/19/23 @ 10:10 by Rosalba Trinh) Hx of colonoscopy H/O fasciotomy History of hemorrhoidectomy History of hand surgery H/O right wrist surgery Family History Father Diabetes Mother No problems noted. Daughter Mental health disorder Social History Housing: House Patient Tobacco Use Status: Never used Tobacco e-Cigarette/Vaping Use: Never Used Second Hand Smoke Exposure: No service: Yes Current occupational status: employed Current occupation: [employer] Current occupational exposures/hazards: Yes Cognitive needs: No Hearing needs: No Vision needs: No Questionnaire Thrive Questionnaire Date Thrive assessed: 09/06/22 GEE-7 AMB Questionnaire GEE-7 Date GEE - 7 assessed: 09/06/22 Source: Developed by Drs. Hector Kam, Paige Ferrari, Jean Jaeger and colleagues, with an educational janay from [employer]. Physical exam (Primary Care) Tobacco/Smoking Status: Tobacco use Status Tobacco use date assessed 09/06/22 06/01/23 10:06 Patient Tobacco Use Status Never used Tobacco 02/27/25 16:28 e-Cigarette/Vaping Use Never Used 06/01/23 10:06 Thrive Assessment: Date of Thrive Assessment Date Thrive assessed 09/06/22 06/01/23 10:06 Telehealth Telehealth Telehealth Platform: [facility] Location of provider rendering services: practice address Location of patient: address on file Patient Identification confirmed using: Name, : Yes Telehealth method: video Patient verbally consented to treatment: Yes Patient verbally consented to billing insurance company: Yes Patient informed of any privacy concerns related to visit: Yes Minutes spent on Phone/Video with Pt.: 18 Coding Level of Care Code Tele Est Pt Level 3 (49844) Diagnoses Anxiety in acute stress reaction F41.1; F43.0 GERD (gastroesophageal reflux disease) K21.9 Depression F32.A Assessment & Plan Assessment & Plan (1) Anxiety in acute stress reaction: Code(s): F41.1 - Generalized anxiety disorder; F43.0 - Acute stress reaction Category: Medical (2) GERD (gastroesophageal reflux disease): Code(s): K21.9 - Gastro-esophageal reflux disease without esophagitis Category: Medical (3) Depression: Code(s): F32.A - Depression, unspecified Category: Medical Plan . Medications: New pantoprazole 20 mg PO DAILY 30 tabs 4RF 30 days
== END 2025-03-12 08:37 | disposition home or self-care (01) ==
LOC: HO.HMCC 06:48
PROVIDERS: PCP Nurse Practitioner Family; Visit Provider Nurse Practitioner Family
DX: K21.9 Gastro-esophageal reflux disease without esophagitis (principal); F41.1 Generalized anxiety disorder; F43.0 Acute stress reaction; F32.A Depression, unspecified

== ENCOUNTER 2025-05-12 06:39 | Outpatient (AMB) | payer BC, SELFPAY ==
--- OUTSIDE RECORDS SUMMARY | 2024-07-05 05:30 | XMS_ITS ---
Author Organization [facility] Address [address] [place] [address] Care Team Providers Care Manager Heavy Duty Name Role Phone Pedro Birmingham Primary Care Provider Unav ailable Adrienne Melendez Unavailable [phone] Encounters Encounter Location Date Provider Diagnosis [facility] [address] [place] [address] 07/05/2024 Adrienne Melendez Plan Of Treatment No Information Progress Notes * Asad CURRIEinDOB:1970 (55 yo M)Acc No.[id number]:07/05/2024 Progress Note Patient: Mert BLANCO Provider: Ghassan Melendez DPM :1970 A ge:54 Y S ex:Male Date:07/05/2024 Address:[address], [place] Pcp:HANNAH Alonzo Subjective: * Chief Complaints: * * Medical History: Objective: * Vitals: Assessment: Plan: * Treatment: * Images: * The named appointment provid er may or may not be the originator of this progress note, and it is not deemed complete until electronically signed by the appointment provider. Sign off status: Pending * Provider: Ghassan Melendez DPM Date: 09/04/2023 Generated for Printi ng/Faxing/eTransmitting on: 0 05/12/2025 06:42 AM EDT
--- OUTSIDE RECORDS SUMMARY | 2025-05-12 06:43 | XMS_ITS | Patient Health Record ---
[facility] Address [address] [facility] [place] [address] Care Team Providers Care Card Folder Name Role Phone Pedro Birmnigham Primary Care Provider Unav ailable Nora Adrienne Unavailable [phone] Allergies Allergen (clinical drug ingredient) Drug/Non Drug Allergy documented on EMR Reaction Allergy Type Onset Date Status Bee Sting Unknown Allergy Active Reason For Referral No Information Medications Medication SIG (Take, Route, Frequency, Duration) Notes Start Date End Date Status Ciclopirox Olamine 0.77 % 1 application Externally Twice a day to feet including between the toes; Duration: 30 days Active LamISIL 250mg 1 tablet orally Once daily; Duration: 30 days Active Ciclopirox 0.77 % 1 application Director Microbiology ally Twice a day; Duration: 365 days Active Social History Tobacco Use: [...] an other tobacco user? No Vital Signs Blood pressure diastolic 81 mm Hg 10/22/2024 Height 0it79ha in 10/22/2024 Blood pressure systolic 130 mm Hg 10/22/2024 Weight 240 lbs 10/22/2024 BMI 33.47 kg/m2 10/22/2024 Encounters Encounter Location Date [facility] [place] [address] 08/05/2024 Adrienne Perica Pain in right toe(s) M79.674 ; Fungal infection of nail B35.1 ; Pain in left toe(s) M79.675 and Tinea pedis of both feet B35.[address] [address] 10/22/2024 Adrienne Perica Pain in right toe(s) M79.674 ; Fungal infection of nail B35.1 ; Pain in left toe(s) M79.675 and Tinea pedis of both feet B35.[address] [address] 07/05/2024 Adrienne Perica [address] [address] 08/12/2024 Adrienne Perica Fungal infection of nail B35.[address] [address] 11/12/2024 Adrienne Perica Assessments Encounter Date Diagnosis (ICD Code) Assessment Notes Treatment Notes Treatment Clinical Notes Section Notes 08/05/2024 Pain in right toe(s) (ICD-10 - M79.674) 08/05/2024 Fungal infection of nail (ICD-10 - B35.1) Rx management (4) 08/12/2024 Fungal infection of nail (ICD-10 - B35.1) Rx management (4) 10/22/2024 Pain in right toe(s) (ICD-10 - M79.674) 10/22/2024 Fungal infection of nail (ICD-10 - B35.1) Rx management (4) 08/05/2024 Pain in left toe(s) (ICD-10 - M79.675) 10/22/2024 Pain in left toe(s) (ICD-10 - M79.675) 08/05/2024 Tinea pedis of both feet (ICD-10 - B35.3) 10/22/2024 Tinea pedis of both feet (ICD-10 - B35.3) Plan Of Treatment Pending Test Test Name Order Date *Liver Function Test (LFT) 04/24/2024 *Liver Function Test (LFT) 08/05/2024 *Liver Function Test (LFT) 10/22/2024 *Liver Function Test (LFT) 04/24/2024 Insurance Providers Payer Name Payer Address Payer Phone Subscriber Number Group Number Insured Name Patient Relationship to Insured Coverage Start Date Coverage End Date [facility] [address] [place] [address] [id number] Mert Currie Self - patient is the insured Medical (General) History Medical History History ICD Code Broken bones covid-19 Chicken pox Surgical History Surgery Date(Month/Year) broken bones, surgery to repair 1998
--- NOTE | 2025-05-12 07:25 | MHC.PC.OV ---
Intake Visit Reasons: Anxiety Allergies bee venom protein (honey bee) Allergy (Unknown, Verified 05/12/25 07:29) unknown Medication List - Last Reconciled 05/12/25 by HECTOR Henao clotrimazole 1% 1 appl topical bid 3 weeks pantoprazole 20 mg PO DAILY 30 days tirzepatide (weight loss) (Zepbound) 2.5 mg (0.5 mL) subcut QWEEK 30 days Tobacco use date assessed: 09/06/22 HPI Anxiety HPI Details History of Present Illness The patient is a 55-year-old male presenting with severe GERD symptoms. He reports experiencing significant symptoms, particularly at night, including a bad taste in his mouth. The symptoms have been persistent, and he has been advised to avoid eating at least three hours before bedtime and to elevate the head of his bed. He has pantoprazole to start if need be The patient is also experiencing significant stress and anxiety related to his work situation. 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 He has legal representation to help address this. The stress from this situation has led to symptoms of anxiety and depression, although he denies any suicidal or homicidal ideation. Court case in July. Review of Systems - Gastrointestinal: Reports severe GERD symptoms, particularly at night, with a bad taste in the mouth. - Psychiatric: Reports anxiety and depression related to work stress. Denies suicidal or homicidal ideation. Plan The patient will be started on pantoprazole to manage his GERD symptoms. He has been advised to avoid eating at least three hours before bedtime and to elevate the head of his bed to reduce symptoms. Given the significant stress and anxiety related to his work situation, it is recommended that he consider working from home until his court date in July. The patient is encouraged to reach out if he experiences any worsening of symptoms or has further questions. Discussion Notes I discussed with the patient the initiation of pantoprazole for his GERD symptoms and advised lifestyle modifications such as avoiding late meals and elevating the head of the bed. 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 Patient Instructions - Start taking pantoprazole as prescribed. - Avoid eating at least three hours before going to bed. - Elevate the head of your bed to help reduce GERD symptoms. - Consider working from home until your court date in July to reduce stress. - Contact me if your symptoms worsen or if you have any questions. [facility] Medical History Fatty liver External hemorrhoids Mass of anus Displaced fracture of mandible Injury of shoulder, left Surgical History Hx of colonoscopy H/O fasciotomy History of hemorrhoidectomy History of hand surgery H/O right wrist surgery Family History Father Diabetes Mother No problems noted. Daughter Mental health disorder Social History Housing: House Patient Tobacco Use Status: Never used Tobacco e-Cigarette/Vaping Use: Never Used Second Hand Smoke Exposure: No service: Yes Current occupational status: employed Current occupation: [employer] Current occupational exposures/hazards: Yes Cognitive needs: No Hearing needs: No Vision needs: No Questionnaire Thrive Questionnaire Date Thrive assessed: 09/06/22 GEE-7 AMB Questionnaire GEE-7 Date GEE - 7 assessed: 09/06/22 Source: Developed by Drs. Hector Kam, Paige Ferrari, Jean Jaeger and colleagues, with an educational janay from [employer]. Physical exam (Primary Care) Tobacco/Smoking Status: Tobacco use Status Tobacco use date assessed 09/06/22 03/12/25 07:32 Patient Tobacco Use Status Never used Tobacco 03/12/25 07:32 e-Cigarette/Vaping Use Never Used 03/12/25 07:32 Thrive Assessment: Date of Thrive Assessment Date Thrive assessed 09/06/22 03/12/25 07:32 Telehealth Telehealth Telehealth Platform: [facility] Location of provider rendering services: practice address Location of patient: address on file Patient Identification confirmed using: Name, : Yes Telehealth method: video Patient verbally consented to treatment: Yes Patient verbally consented to billing insurance company: Yes Patient informed of any privacy concerns related to visit: Yes Minutes spent on Phone/Video with Pt.: 12 Coding Level of Care Code Tele Est Pt Level 3 (34999) Diagnoses Anxiety in acute stress reaction F41.1; F43.0 Depression F32.A GERD (gastroesophageal reflux disease) K21.9 Obesity E66.9 Assessment & Plan Assessment & Plan (1) Anxiety in acute stress reaction: Code(s): F41.1 - Generalized anxiety disorder; F43.0 - Acute stress reaction Category: Medical (2) Depression: Code(s): F32.A - Depression, unspecified Category: Medical (3) GERD (gastroesophageal reflux disease): Code(s): K21.9 - Gastro-esophageal reflux disease without esophagitis Category: Medical (4) Obesity: Code(s): E66.9 - Obesity, unspecified Category: Medical Plan .
== END 2025-05-12 08:14 | disposition home or self-care (01) ==
LOC: HO.HMCC 06:40
PROVIDERS: PCP Nurse Practitioner Family; Visit Provider Nurse Practitioner Family
DX: F41.1 Generalized anxiety disorder (principal); F43.0 Acute stress reaction; F32.A Depression, unspecified; K21.9 Gastro-esophageal reflux disease without esophagitis; E66.9 Obesity, unspecified

== ENCOUNTER 2025-07-22 06:42 | Outpatient (AMB) | payer BC, SELFPAY ==
--- OUTSIDE RECORDS SUMMARY | 2024-04-05 05:30 | XMS_ITS ---
Author Organization [facility] Address [address] [place] [address] Care Team Providers Care Bank Appraiser Name Role Phone Pedro Birmingham Primary Care Provider Unav ailable Adrienne Melendez Unavailable [phone] Brewer Social History Tobacco Use: Social History Observation Description Date Details (start date - stop date) Never Smoker NA - NA Tobacco Use/Smoking Question Answer Notes Are you a: nonsmoker Additional Findings: Tobacco Non-User Current no n-smoker Alcohol Screen Question Answer Notes Did you have a drink containing alcohol in the p ast year? Yes Points 0 Interpretation Negative Vital Signs Height 5 ft 11 in in 04/05/2024 Weight 230 lbs 04/05/2024 BMI 32.07 kg/m2 04/05/2024 Encounters Encounter Location Date Provider Diagnosis [facility] [address] [place] [address] 04/05/2024 Adrienne Melendez Plan Of Treatment No Information Progress Notes * Asad CURRIEinDOB:1970 (55 yo M)Acc No.[id number]:04/05/2024 Progress Notes Patient: Mitch LYLESDOROTHYMert Provider: Ghassan Melendez DPM :1970 A ge:54 Y S ex:Male Date:04/05/2024 Address:[address], [place] [facility] [place] Pcp:HANNAH Alonzo Subjective: * Chief Complaints: * [address] Brewer. * ROS: G eneral/Constitutional: Nausea d enies. V omiting d enies. H randy Thirst d enies. L oss appetite d enies. C hills d enies. F atigue d enies.?Fever d enies. N ight Sweats d enies. U nexplained weight loss d enies. U nexplained weight gain d enies. H EENTM: Dentures d enies. D izziness d enies. G lasses/contacts d enies. R etinopathy d enies. B lurred/double vision d enies. T MJ?denies. D ischarge/drainage d enies. I mplants d enies. S ore throat d enies. D ental implants d enies. H radha of hearing d enies. D ifficulty chewing/swallowing/speaking d enies. N ose bleeds d enies. S ore mouth d enies. ? R espiratory: On Oxygen d enies. P neumonia/pleurisy d enies.?Bronchitis d enies. E mphysema d enies. C oughing d enies. C ough blood?denies. S hortness of breath d enies. W heezing d enies. C ardiovascular: Pacemaker d enies. M COLLAR FUSER d enies. W PW d enies. C HF d enies. H eart attack d enies. S eptal defect d enies. R apid beat d enies. C hest pain d enies. A trial Fib. d enies. M urmur/Palpitations d enies. G astrointestinal: Hemorrhoids d enies. S tomach/Abdominal pain d enies. D ark blood stool d enies. I rritable bowel d enies. C onstipation d enies. D iarrhea d enies. H ematology: Swelling d enies. C lots d enies. V aricose Veins d enies. B ruising d enies. B leeding problem d enies. G enitourinary: Blood urine d enies. F requent/Painfu/urination/bladder control d enies. K idney stones d enies. I nfection (UTI) d enies. N ephropathy d enies. s ex trans dis (STD) d enies. P rostate d enies. M usculoskeletal: Hammertoes d enies. B unions d enies. B ack Pain d enies. M uscle Cramps/ Resting d enies. M uscle cramps / walking d enies.?Generalized aches and pains d enies. W eakness d enies. I nteg.: Soni d enies. S cars d enies. C orns/calluses?denies. I ngrown nails d enies. P ainful nails d enies. O pen Sores d enies. R ashes d enies. N eurologic: Difficulty sleeping d enies. B rain disorder d enies. N umbness d enies. B alance trouble d enies. C onfusion d enies. F ainting/blackouts d enies. T ingling d enies. T remors d enies. * Medical History: B roken bones, Covid-19, Chicken pox. * Family History: M other: alive, diagnosed with Diabetic - NIDDM. F ather: , diagnosed with Diabetic - NIDDM. * Social History: T obacco Use: T obacco Use/Smoking A re you a: n onsmoker A dditional Findings: Tobacco Non-User C urrent non-smoker D rugs/Alcohol: D rugs H ave you used drugs other than those for medical reasons in the past 12 months? N o Alcohol Screen D id you have a drink containing alcohol in the past year? Y es P oints 0 I nterpretation N egative M iscellaneous: C affeine: yes, frequency:. Marital status: single. 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 Objective: * Vitals: H t:5 ft 11 in, Wt:230, BMI:32.07, Ht-cm: 180.34 cm, Wt-k.33 kg. Assessment: Plan: * Treatment: * Images: * The named appointment provid er may or may not be the originator of this progress note, and it is not deemed complete until electronically signed by the appointment provider. Sign off status: Pending * Provider: Ghassan Melendez DPM Date: 0 04/05/2024 Generated for Millie salinas/Frankie/Karthikeyan on: 1 09/22/2024 06:45 AM EST
--- OUTSIDE RECORDS SUMMARY | 2024-07-05 04:30 | XMS_ITS ---
Author Organization [facility] Address [address] [place] [address] Care Team Providers Care Commutator Undercutter Name Role Phone Pedro Birmingham Primary Care Provider Unav ailable Adrienne Melendez Unavailable [phone] Encounters Encounter Location Date Provider Diagnosis [facility] [address] [place] [address] 07/05/2024 Adrienne Melendez Plan Of Treatment No Information Progress Notes * Asad CURRIEinDOB:1970 (55 yo M)Acc No.[id number]:07/05/2024 Progress Note Patient: Mert BLANCO Provider: Ghassan Melendez DPM :1970 A ge:54 Y S ex:Male Date:07/05/2024 Address:[address], [place], [place] Pcp:HANNAH Alonzo Subjective: * Chief Complaints: * * Medical History: Objective: * Vitals: Assessment: Plan: * Treatment: * Images: * The named appointment provid er may or may not be the originator of this progress note, and it is not deemed complete until electronically signed by the appointment provider. Sign off status: Pending * Provider: Ghassan Melendez DPM Date: 09/04/2023 Generated for Koreyi rita/Frankie/eTransmitting on: 09/22/2024 06:45 AM EST
--- OUTSIDE RECORDS SUMMARY | 2025-07-22 06:46 | XMS_ITS | Patient Health Record ---
[facility] K[facility] Address [address] [facility] [place] [address] Care Team Providers Care Religion Instructor Name Role Phone Pedro [place] Primary Care Provider Unav ailable Nora Adrienne Unavailable [phone] Allergies Allergen (clinical drug ingredient) Drug/Non Drug [...] days Active Ciclopirox 0.77 % 1 application Administrative Services Specialist ally Twice a day; Duration: 365 days [...] pressure diastolic 81 mm Hg 10/22/2024 Height [id number] in 10/22/2024 Blood pressure systolic 130 mm Hg 10/22/2024 Weight 240 lbs 10/22/2024 BMI 33.47 kg/m2 10/22/2024 Encounters Encounter [facility] [facility] [address] 08/05/2024 Adrienne Perica Pain in right toe(s) M79.674 ; Fungal infection of nail B35.1 ; Pain in left toe(s) M79.675 and Tinea pedis of both feet B35.[address] [address] 10/22/2024 Adrienne Perica Pain in right toe(s) M79.674 ; Fungal infection of nail B35.1 ; Pain in left toe(s) M79.675 and Tinea pedis of both feet B35.[address] [address] 08/12/2024 Adrienne Perica Fungal infection of nail B35.[address] [address] 11/12/2024 Adrienne Perica Assessments Encounter Date Diagnosis [...] Insured Coverage Start Date Coverage End Date [facility] [address] [place] [address] [phone] [id number] Mert Currie Self - patient is the insured Medical (General) History Medical History History ICD Code Broken bones covid-19 Chicken pox Surgical History Surgery Date(Month/Year) broken bones, surgery to repair 1998
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
== END 2025-07-22 08:54 | disposition home or self-care (01) ==
LOC: HO.HMCC 06:42
PROVIDERS: PCP Nurse Practitioner Family; Visit Provider Nurse Practitioner Family
DX: K21.9 Gastro-esophageal reflux disease without esophagitis (principal); F41.1 Generalized anxiety disorder; F43.0 Acute stress reaction; G47.00 Insomnia, unspecified; I10 Essential (primary) hypertension; R25.3 Fasciculation

== ENCOUNTER 2025-07-28 08:37 | Outpatient (REF) | payer BC, SELFPAY ==
[2025-07-28 10:04] LABS: MANUAL DIFF FLAG NO
[2025-07-28 10:18] LABS: Hematocrit 44.4 % (42.0-52.0); Hemoglobin 14.8 g/dl (14.0-18.0); Imm Gran Abs Auto 0.03 X10*3/uL (0.00-0.03); Imm Gran Pct Auto 0.5 % (0.0-0.4); Lymphocytes Absolute Auto 2.4 X10*3/uL (1.2-4.9); Mean Corpuscular HGB Conc 33.3 g/dl (31.0-36.0); Mean Corpuscular Hemoglobin 28.4 pg (27.0-33.0); Mean Corpuscular Volume 85.1 fL (80.0-98.0); NRBC Abs Auto 0.000 X10*3/uL (0.0-0.012); NRBC Pct Auto 0.0 /100WBC (0.0-0.2); Platelet Count 214 X10*3/uL (160-400); Red Blood Count 5.22 X10*6/uL (4.60-5.80); White Blood Count 6.5 X10*3/uL (4.8-10.8)
[2025-07-28 10:36] LABS: Alanine Aminotransferase 60 U/L (0-40); Albumin Level 4.8 g/dL (3.5-5.0); Alkaline Phosphatase 71 U/L (39-117); Anion Gap 11 (12-20); Aspartate Amino Transferase 35 U/L (5-37); Blood Urea Nitrogen 27 mg/dL (9-16); Calcium 9.6 mg/dL (8.4-10.2); Carbon Dioxide 23 mmol/L (22-29); Chloride 108 mmol/L (96-108); Cholesterol 162 mg/dL (<200); Estimated Glomerular Filt Rate 56; HDL Cholesterol 37 mg/dL (>40); Potassium 4.0 mmol/L (3.3-5.1); Sodium 138 mmol/L (135-145); Total Protein 7.6 g/dL (6.5-8.0); Triglycerides 138 mg/dL (<150)
[2025-07-28 10:47] LABS: Appearance Urine Cloudy; Glucose Urine UA Negative (Negative); PH 6.0 (5.0-9.0); Specific Gravity - Urine 1.025 (1.005-1.025)
== END 2025-07-28 08:38 | disposition home or self-care (01) ==
LOC: HO.HMGCLDS 08:37
PROVIDERS: PCP Nurse Practitioner Family; Visit Provider Nurse Practitioner Family
DX: Z00.00 Encounter for general adult medical examination without abnormal findings (principal); Z12.5 Encounter for screening for malignant neoplasm of prostate; R80.9 Proteinuria, unspecified; R79.89 Other specified abnormal findings of blood chemistry; K21.9 Gastro-esophageal reflux disease without esophagitis
CPT/HCPCS: 36415; 80053; 80061; 81003; 84153; 84443; 85025; 96127

== ENCOUNTER 2025-07-28 12:19 | Outpatient (AMB) | payer BC, SELFPAY ==
--- OUTSIDE RECORDS SUMMARY | 2024-04-05 05:30 | XMS_ITS ---
Author Organization [facility] Address [address] [place] [address] Care Team Providers Care Ballistics Teacher Name Role Phone Pedro Birmingham Primary Care Provider Unav ailable Adrienne Melendez Unavailable [phone] Brewer Social History [...] 04/05/2024 Encounters Encounter Location Date Provider Diagnosis [facility] [address] [place] [address] 04/05/2024 Adrienne Melendez Plan Of Treatment No Information Progress Notes * Asad CURRIEinDOB:1970 (55 yo M)Acc No.[id number]:04/05/2024 Progress Notes Patient: Mitch LYLESDOROTHYMert Provider: Ghassan Mleendez DPM :1970 A ge:54 Y S ex:Male Date:04/05/2024 Address:[address], [place] [facility] [place] [place] Pcp:HANNAH Alonzo Subjective: * Chief Complaints: * [...] enies. C ardiovascular: Pacemaker d enies. M HEEL GUMMER d enies. W PW d enies. C [...] 04/05/2024 Generated for Millie salinas/Frankie/Karthikeyan on: 1 09/28/2024 05:49 PM EST
--- OUTSIDE RECORDS SUMMARY | 2024-07-05 04:30 | XMS_ITS ---
Author Organization [facility] Address [address] [place] [address] Care Team Providers Care Laboratory Courier Name Role Phone Pedro Birmingham Primary Care Provider Unav ailable Adrienne Melendez Unavailable [phone] Encounters Encounter Location Date Provider Diagnosis [facility] [address] [place] [address] 07/05/2024 Adrienne Melendez Plan Of Treatment No Information Progress Notes * Asad CURRIEinDOB:1970 (55 yo M)Acc No.[id number]:07/05/2024 Progress Note Patient: Mert BLANCO Provider: Ghassan Melendez DPM :1970 A ge:54 Y S ex:Male Date:07/05/2024 Address:[address], [place], [place] Pcp:HANNAH Alonzo Subjective: * Chief Complaints: * * Medical History: Objective: * Vitals: Assessment: Plan: * Treatment: * Images: * The named appointment provid er may or may not be the originator of this progress note, and it is not deemed complete until electronically signed by the appointment provider. Sign off status: Pending * Provider: Ghassan Melendez DPM Date: 09/04/2023 Generated for Koreyi ng/Fatyeg/eTransmitting on: 09/28/2024 05:48 PM EST
--- NOTE | 2025-07-28 12:26 | MHC.PC.OV ---
Vital Signs 07/28/25 12:32 Height 5 ft 11 in Weight 250 lb BMI 34.9 BP 110/76 Blood Pressure Location Lt brachial Position Sitting Pulse 89 Pulse Source Pulse Oximeter Pulse Oximetry (%) 97 Oxygen Delivery Method Room Air Intake Visit Reasons: rash/anxiety Intake Note: Pt is here today for a sick visit. Pt c/o anxiety and rash. Allergies bee venom protein (honey bee) Allergy (Unknown, Verified 07/28/25 12:34) unknown Medication List - Last Reconciled 07/28/25 by CHAPITO Henao- clotrimazole 1% 1 appl topical bid 3 weeks pantoprazole 20 mg PO DAILY 30 days tirzepatide (weight loss) (Zepbound) 2.5 mg (0.5 mL) subcut QWEEK 30 days Tobacco use date assessed: 07/28/25 Dental Screening Dental Screen Date: 07/28/25 Did you have a dental visit in the last 12 months?: Yes Did you have a dental problem in the last 6 months where you did not have access to dental care?: No Was dental information given to patient?: Patient has dentist HPI rash/anxiety HPI Details Chief Complaint The patient presents for a follow-up visit for acid reflux and anxiety, and to review recent lab work. History of Present Illness The patient is a 55 year old male presenting for follow-up on acid reflux and anxiety and to review his lab results. His anxiety has improved slightly following the dismissal of a court case that was filed against him, although other court proceedings are ongoing. He has also experienced stress related to his daughter, who was recently discussing suicide, but this situation is improving. He denies any suicidal or homicidal ideation. He reports s/s of acid reflux with a bad taste in his mouth (middle of the night). He also reports facial twitching. He admits to a poor diet. He has a history of fatty liver and recurrent tinea on his upper torso, which worsens in the summer. He denies any active chest pain or shortness of breath. Recent lab results showed an elevated liver enzyme, protein in his urine, and an elevated creatinine level. Social History - Stressors: He is currently involved in court proceedings and has experienced stress regarding his daughter's recent suicidal ideation. - Nutrition: He reports a poor diet. Health Maintenance - Diet and Weight Management: Advised that weight loss is very important due to obesity and fatty liver. Review of Systems - Psychiatric: Reports anxiety, which is slightly improved. Denies suicidal or homicidal ideation. - Neurological: Reports facial twitching. - Gastrointestinal: Reports acid reflux and a bad taste in his mouth. - Cardiovascular: Denies chest pain. - Respiratory: Denies shortness of breath. - Integumentary: Reports intermittent tinea on the upper torso. Physical Exam General: Cooperative, healthy appearing, comfortable, no acute distress and well developed, but obese Orientation: Patient oriented x3 Limitations: No limitations Head: Normal to inspection Ears: Hearing grossly normal bilaterally Nose: Normal external nose present Eyes: Appearance normal, both eyes and all related structures Neck: Normal visual inspection and Yes full ROM Respiratory: Normal respiratory effort and able to speak in complete sentences. Clear to auscultation bilaterally Cardiovascular: Regular rate and rhythm. Normal S1 and S2 GI: Normal to inspection. Soft to palpation and nontender Skin: Tinea noted on upper torso, faint (scattered) Neuro: Patient oriented x3 Extremities: Normal to inspection Results - Labs: Recent labs show an elevated liver enzyme, protein in the urine, and elevated creatinine. Plan 1. Gastroesophageal Reflux Disease The patient's GERD, along with facial twitching, is believed to be related to stress. To manage his symptoms, his pantoprazole dose will be increased from 20 mg daily to 20 mg twice daily. It was also recommended that he elevate the head of his bed by about 2 inches to use gravity to help with his reflux. 2. Anxiety His anxiety is attributed to ongoing stress from legal proceedings and family issues. He is managing and no medication changes were made at this time. 3. Fatty Liver Disease And Obesity His labs revealed an elevated liver enzyme, consistent with his history of fatty liver. The importance of weight loss was emphasized to improve this condition. 4. Tinea He has a recurring tinea infection on his upper torso, which worsens in the summer. He will continue using a cream for treatment, as oral medications are being avoided due to his elevated liver function tests. 5. Dehydration His elevated creatinine and proteinuria are suspected to be due to dehydration. The plan is for him to increase fluid intake and repeat the lab tests in the near future. Discussion Notes I discussed with the patient that I believe much of his symptomatology, including acid reflux and facial twitching, is related to stress and his poor diet. I explained the plan to increase his pantoprazole to twice daily and have him elevate the head of his bed to help with his GERD. We reviewed his lab results, noting the elevated liver enzyme is consistent with his history of fatty liver, and I stressed that weight loss is very important. Regarding his tinea, I recommended he continue the cream and explained that we are avoiding oral antifungals because of his liver function. I also informed him that the protein in his urine and elevated creatinine are likely due to dehydration, and I instructed him to push fluids and that we would repeat these labs in the near future. Patient Instructions - Increase your Pantoprazole (acid reflux medicine) to 20 mg twice a day, instead of just once a day. - Lift the head of your bed up by about 2 inches to help with acid reflux at night. - Continue to use the cream for the rash (tinea) on your upper body. - It is very important that you work on losing weight to help your fatty liver condition. - Drink plenty of fluids to help with dehydration. We will need to repeat your kidney function labs soon. [facility] Medical History Fatty liver External hemorrhoids Mass of anus Displaced fracture of mandible Injury of shoulder, left Surgical History Hx of colonoscopy H/O fasciotomy History of hemorrhoidectomy History of hand surgery H/O right wrist surgery Family History Father Diabetes Mother No problems noted. Daughter Mental health disorder Social History Housing: House Patient Tobacco Use Status: Never used Tobacco e-Cigarette/Vaping Use: Never Used Second Hand Smoke Exposure: No service: Yes Current occupational status: employed Current occupation: [employer] Current occupational exposures/hazards: Yes Cognitive needs: No Hearing needs: No Vision needs: No Questionnaire PHQ-9 Over the last 2 weeks, how often have you been bothered by any of the following problems? 1. Little interest or pleasure in doing things: not at all 2. Feeling down, depressed, or hopeless: not at all 3. Trouble falling or staying asleep, or sleeping too much: not at all 4. Feeling tired or having little energy: not at all 5. Poor appetite or overeating: not at all 6. Feeling bad about yourself - or that you are a failure or have let yourself or your family down: not at all 7. Trouble concentrating on things, such as reading the newspaper or watching television: not at all 8. Moving or speaking so slowly that other people could have noticed. Or the opposite - being so fidgety or restless that you have been moving around a lot more than usual: not at all 9. Thoughts that you would be better off or of hurting yourself in some way: not at all Total score: 0 Depression Screening Interpretation: Negative Depression Screening Done: Yes Source: Developed by Drs. Hector Kam, Paige Ferrari, Jean Jaeger and colleagues, with an educational janay from [employer]. Thrive Questionnaire Date Thrive assessed: 07/28/25 I am a: Patient What is your living situation today?: I have a steady place to live Within the past 12 months, did the food you bought not last and you didn't have the money to get more?: I choose not to answer this question Within the past 12 months, did you worry whether your food would run out before you got money to buy more?: I choose not to answer this question Do you have trouble paying for medicines?: I choose not to answer this question Do you have trouble getting transportation to medical appointments?: I choose not to answer this question Do you have trouble paying your heating and electricity bill?: I choose not to answer this question Do you have trouble taking care of your child, family member or friend?: I choose not to answer this question Do you have trouble with day-to-day activities such as bathing, preparing meals, shopping, managing finances, etc.?: I choose not to answer this question Are you currently unemployed and looking for a job?: I choose not to answer this question Are you interested in more education?: I choose not to answer this question Please select the resources that you would like help with: None Currently or been in a relationship where the following occur: I choose not to answer THRIVE Score: 0 AUDIT C Alcohol Use Questionnaire (AUDIT-C) 1. How often do you have a drink containing alcohol?: Monthly or less 2. How many drinks containing alcohol do you have on a typical day when you are drinking?: 1 or 2 3. How often do you have six or more drinks on one occasion?: Never Total Score: 1 Score Reviewed/Action Taken: Yes GEE-7 AMB Questionnaire GEE-7 Date GEE - 7 assessed: 09/06/22 Source: Developed by Drs. Hector Kam, Paige Ferrari, Jean Jaeger and colleagues, with an educational janay from [employer]. Physical exam (Primary Care) Vital Signs: Last Vital Signs Pulse 89 07/28/25 12:32 BP 110/76 07/28/25 12:32 Pulse Ox 97 07/28/25 12:32 Oxygen Delivery Method Room Air 07/28/25 12:32 BMI result Body Mass Index 34.9 Tobacco/Smoking Status: Tobacco use Status Tobacco use date assessed 07/28/25 07/28/25 12:36 Patient Tobacco Use Status Never used Tobacco 07/28/25 12:36 e-Cigarette/Vaping Use Never Used 07/28/25 12:27 PHQ-9: PHQ-9 Score PHQ-9: Total score 0 07/28/25 12:36 Depression Screening Interpretation: Negative Thrive Assessment: Date of Thrive Assessment Date Thrive assessed 07/28/25 07/28/25 12:38 Currently or been in a relationship where the following occur: I choose not to answer Coding Level of Care Code Est Pt Level 3 (82278) Diagnoses Proteinuria R80.9 Elevated serum creatinine R79.89 GERD (gastroesophageal reflux disease) K21.9 Assessment & Plan Assessment & Plan (1) Proteinuria: Code(s): R80.9 - Proteinuria, unspecified Category: Medical (2) Elevated serum creatinine: Code(s): R79.89 - Other specified abnormal findings of blood chemistry Category: Medical (3) GERD (gastroesophageal reflux disease): Code(s): K21.9 - Gastro-esophageal reflux disease without esophagitis Category: Medical Plan . Orders: Orders Comprehensive Met. Panel Today R7.89 - Other specified abnormal findings of blood chemistry, R80.9 - Proteinuria, unspecified UA CC w/rflx Micro + Cult Today R7.89 - Other specified abnormal findings of blood chemistry, R80.9 - Proteinuria, unspecified Medications: Changed From pantoprazole 20 mg PO DAILY 30 days 30 tabs 4RF To pantoprazole 20 mg PO BID 60 tabs 4RF 30 days Refilled clotrimazole 1% 1 appl topical bid 45 grams 1RF 3 weeks Discontinued tirzepatide (weight loss) (Zepbound) for 4 weeks, can cause contipation Discontinued Reason: Doctor's Order 2.5 mg (0.5 mL) subcut QWEEK 30 days 2.5 mL 0RF
[2025-07-28 12:32] VITALS: BP 110/76; PULSE 89; O2SAT 97; BMI 34.9
--- OUTSIDE RECORDS SUMMARY | 2025-07-28 17:49 | XMS_ITS | Patient Health Record ---
[facility] Kirt Montgomeryley Address [address] [facility] [place] [address] Care Team Providers Care Quality Technician Name Role Phone Pedro [place] Primary Care Provider Unav ailable Nora Adrienne Unavailable [phone] Allergies Allergen (clinical drug ingredient) Drug/Non Drug [...] days Active Ciclopirox 0.77 % 1 application Chemist ally Twice a day; Duration: 365 days [...] pressure diastolic 81 mm Hg 10/22/2024 Height [id number] in 10/22/2024 Blood pressure systolic 130 mm Hg 10/22/2024 Weight 240 lbs 10/22/2024 BMI 33.47 kg/m2 10/22/2024 Encounters Encounter [facility] [facility] [place] [address] [facility]/05/2024 Adrienne Perica Pain in right toe(s) M79.674 ; Fungal infection of nail B35.1 ; Pain in left toe(s) M79.675 and Tinea pedis of both feet B35.[address] [address] 10/22/2024 Adrienne Perica Pain in right toe(s) M79.674 ; Fungal infection of nail B35.1 ; Pain in left toe(s) M79.675 and Tinea pedis of both feet B35.[address] [address] 08/12/2024 Adrienne Perica Fungal infection of nail B35.[address] [address] 11/12/2024 Adrienne Perica Assessments Encounter Date Diagnosis [...] Insured Coverage Start Date Coverage End Date [facility] [address] [place] [address] [phone] [id number] Mert Currie Self - patient is the insured Medical (General) History Medical History History ICD Code Broken bones covid-19 Chicken pox Surgical History Surgery Date(Month/Year) broken bones, surgery to repair 1998
== END 2025-07-28 13:55 | disposition home or self-care (01) ==
PROVIDERS: PCP Nurse Practitioner Family; Visit Provider Nurse Practitioner Family
DX: R80.9 Proteinuria, unspecified (principal); R79.89 Other specified abnormal findings of blood chemistry; K21.9 Gastro-esophageal reflux disease without esophagitis